=== PATIENT | male | born 1950 | race Caucasian/White ===

== ENCOUNTER 2017-12-20 12:00 | Day surgery (SDC) | payer MEDICARE ==
[~2017-12-20] VITALS: Ht 172.7 cm; Wt 54.4 kg
[~2017-12-20 12:00] MED LIST: ADLT ASA LOW81 MG PO; ALEVE220 M2 PO; ALLEGRA-D 1212 HOUR PO; AMOXICILLIN250 M1 PO; AMOXICILLIN500 MG OR; ANUSOL-HC25 MG RE; ASPIRIN325 MG PO; ATORVASTATIN CA20 MG PO; CENTRU3 PO; COMBIVENT IN; DIGITEK0.25 M1 PO; FOSINOPRIL20 MG PO; KEFLEX500 MG OR; LORTAB 10 PO; METOPROL TAR25 MG PO; METOPROL TAR50 MG PO; METOPROLOL TART50 MG PO; NEURONTIN300 MG PO; PLAVIX75 MG PO; SG ASA LOW81 M1 PO; ULTRAM50 MG OR; VITAMIN B-1250 MG PO
[2017-12-20 15:36] VITALS: BP 142/66
== END 2017-12-20 15:55 | disposition home or self-care (01) ==
LOC: ORM 12:00 → ENDO 12:00 → ORM 13:50 → ENDO 13:50
PROVIDERS: ATTEND Internal Medicine Gastroenterology
PROC: 0DB48ZX Excision of Esophagogastric Junction, Via Natural or Artificial Opening Endoscopic, Diagnostic (ICD-10-PCS; principal; 2017-12-20)
PROC: 0DJD8ZZ Inspection of Lower Intestinal Tract, Via Natural or Artificial Opening Endoscopic (ICD-10-PCS; 2017-12-20)
DX: K21.0 Gastro-esophageal reflux disease with esophagitis (principal); K29.70 Gastritis, unspecified, without bleeding; K44.9 Diaphragmatic hernia without obstruction or gangrene; Q40.2 Other specified congenital malformations of stomach; Q39.8 Other congenital malformations of esophagus; K22.70 Barrett's esophagus without dysplasia; Z12.11 Encounter for screening for malignant neoplasm of colon; K64.4 Residual hemorrhoidal skin tags; K57.30 Diverticulosis of large intestine without perforation or abscess without bleeding; K64.8 Other hemorrhoids; F17.200 Nicotine dependence, unspecified, uncomplicated; I25.10 Atherosclerotic heart disease of native coronary artery without angina pectoris; I10 Essential (primary) hypertension; K29.80 Duodenitis without bleeding; Z86.010 Personal history of colon polyps; Z95.1 Presence of aortocoronary bypass graft; Z95.5 Presence of coronary angioplasty implant and graft; Z86.73 Personal history of transient ischemic attack (TIA), and cerebral infarction without residual deficits
CPT/HCPCS: 43239; G0105

== ENCOUNTER → 2018-07-23 | Outpatient (REF) | payer MEDICARE ==
[2018-07-23 08:54] LABS: HEMOGLOBIN 15.7 g/dl (14.0-18.0); IMMATURE GRANULOCYTES 0.2 % (0.0-5.0); MEAN CELL VOLUME 95.6 fL CALC (80.0-100.0); MEAN CORPUSCULAR HGB 31.3 pG CALC (26.0-32.0); MEAN CORPUSCULAR HGB CONC 32.7 g/L CALC (32.0-36.0); NEUT# 6.39 thou/uL (1.82-7.42); RED BLOOD COUNT 5.02 mill/uL (4.70-6.10); RED CELL DISTRI WIDTH 13.8 % (11.5-15.5)
[2018-07-23 09:15] LABS: ALKALINE PHOSPHATASE 129 u/l (38-126); ANION GAP 15 (6-22 (CALC)); BILIRUBIN, TOTAL 0.7 mg/dL (0.0-1.4); BUN 9 mg/dL (8-23); BUN/CREATININE RATIO 11 (12-20 (CALC)); CALCULATED LDLCHOLESTEROL 71 mg/dL (62-129 (CALC)); CARBON DIOXIDE 28 mmol/l (22-30); CHLORIDE 105 mmol/l (95-108); CHOLESTEROL HDL RATIO 3.9 (<4.4 (CALC)); CREATININE 0.8 mg/dL (0.7-1.3); GFR > 60 ML/MIN (>=60 (CALC)); GFR FOR AFR.AMER. > 60 ML/MIN (>=60 (CALC)); HDL CHOLESTEROL 35 mg/dL (>=40); SGOT/AST 19 u/l (19-48); SODIUM 143 mmol/l (137-146); TOTAL CHOLESTEROL 135 mg/dl (0-199); TOTAL PROTEIN 7.7 g/dL (6.3-8.2); TRIGLYCERIDES REFLEX TO dLDL 148 mg/dl (30-149); VLDL CHOLESTROL 30 mg/dl (4-45 (CALC))
== END | disposition home or self-care (01) ==
LOC: LAB 08:34
PROVIDERS: ATTEND Internal Medicine Geriatric Medicine
DX: E78.2 Mixed hyperlipidemia (principal); I10 Essential (primary) hypertension

== ENCOUNTER 2020-04-22 15:10 | Emergency (ER) | payer MEDICARE ==
[~2020-04-22] VITALS: Ht 170.2 cm; Wt 57.3 kg
[2020-04-22 16:13] LABS: GFR > 60 ML/MIN (>=60 (CALC)); GFR FOR AFR.AMER. > 60 ML/MIN (>=60 (CALC))
[2020-04-22 16:16] LABS: HEMATOCRIT 47.7 % (39.0-50.0); HEMOGLOBIN 16.4 g/dl (14.0-18.0); IMMATURE GRANULOCYTES 0.4 % (0.0-5.0); MEAN CELL VOLUME 89.2 fL CALC (80.0-100.0); MEAN CORPUSCULAR HGB 30.7 pG CALC (26.0-32.0); MEAN CORPUSCULAR HGB CONC 34.4 g/dL CAL (32.0-36.0); NEUT# 10.59 thou/uL (1.82-7.42); RED BLOOD COUNT 5.35 mill/uL (4.70-6.10); RED CELL DISTRI WIDTH 12.8 % (11.5-15.5)
[2020-04-22] MEDS ORDERED: PLAVIX75 MG PO (16:19)
[2020-04-22] MEDS ORDERED: LIPITOR40 M1 PO (16:19)
[2020-04-22] MEDS ORDERED: OMEPRAZOLE20 MG PO (16:20)
[2020-04-22] MEDS ORDERED: CYMBALTA30 MG PO (16:21)
[2020-04-22 16:39] LABS: ALBUMIN 4.5 g/dL (3.2-5.0); ALKALINE PHOSPHATASE 158 u/l (38-126); BUN 13 mg/dL (8-23); BUN/CREATININE RATIO 22 (12-20 (CALC)); CHLORIDE 96 mmol/l (95-108); CREATININE 0.6 mg/dL (0.7-1.3); GFR > 60 ML/MIN (>=60 (CALC)); GFR FOR AFR.AMER. > 60 ML/MIN (>=60 (CALC)); LIPASE 64 u/l (23-300); POTASSIUM 4.3 mmol/l (3.5-5.1); SGOT/AST 34 u/l (19-48); TOTAL PROTEIN 8.7 g/dL (6.3-8.2)
[2020-04-22 16:45] LABS: ANION GAP 17 (6-22 (CALC)); CARBON DIOXIDE 23 mmol/l (22-30); SODIUM 132 mmol/l (137-146)
[2020-04-22 18:52] LABS: URINE BLOOD DIPSTICK NEGATIVE (NEGATIVE); URINE COLOR YELLOW; URINE GLUCOSE - DIPSTICK NEGATIVE (NEGATIVE); URINE KETONE >=80 mg/dL (NEGATIVE); URINE LEUK ESTERASE NEGATIVE (NEGATIVE); URINE NITRITE - DIPSTICK NEGATIVE (Negative); URINE PH 5.5 (4.5-8.0); URINE PROTEIN - DIPSTICK TRACE mg/dL (NEG-TRACE); URINE SPECIFIC GRAVITY 1.015
[2020-04-22 18:53] LABS: URINE BILIRUBIN - DIPSTICK SMALL (NEGATIVE)
[2020-04-22] MEDS ORDERED: HYDROCO/APAP1 TA9 PO (19:12)
[2020-04-22 19:15] VITALS: BP 156/72
== END 2020-04-22 19:26 | disposition home or self-care (01) ==
LOC: ED 15:10
PROVIDERS: Family Medicine
DX: R55 Syncope and collapse (principal); R11.2 Nausea with vomiting, unspecified; S32.010A Wedge compression fracture of first lumbar vertebra, initial encounter for closed fracture; I25.10 Atherosclerotic heart disease of native coronary artery without angina pectoris; F17.200 Nicotine dependence, unspecified, uncomplicated; R64 Cachexia; W19.XXXA Unspecified fall, initial encounter; Z86.73 Personal history of transient ischemic attack (TIA), and cerebral infarction without residual deficits
CPT/HCPCS: Q9967

== ENCOUNTER 2020-11-28 17:21 | Emergency (ER) | payer MEDICARE ==
[~2020-11-28] VITALS: Ht 170.2 cm; Wt 54.5 kg
[~2020-11-28 17:21] MED LIST changes: +CYMBALTA30 MG PO; +HYDROCO/APAP1 TA9 PO; +LIPITOR40 M1 PO; +OMEPRAZOLE20 MG PO
[2020-11-28 18:00] LABS: HEMATOCRIT 43.3 % (39.0-50.0); HEMOGLOBIN 14.8 g/dl (14.0-18.0); IMMATURE GRANULOCYTES 0.1 % (0.0-5.0); MEAN CELL VOLUME 90.6 fL CALC (80.0-100.0); MEAN CORPUSCULAR HGB CONC 34.2 g/dL CAL (32.0-36.0); NEUT# 12.82 thou/uL (1.82-7.42); RED BLOOD COUNT 4.78 mill/uL (4.70-6.10); RED CELL DISTRI WIDTH 13.3 % (11.5-15.5); URINE BILIRUBIN - DIPSTICK NEGATIVE (NEGATIVE); URINE BLOOD DIPSTICK NEGATIVE (NEGATIVE); URINE COLOR YELLOW; URINE GLUCOSE - DIPSTICK NEGATIVE (NEGATIVE); URINE KETONE NEGATIVE (NEGATIVE); URINE LEUK ESTERASE NEGATIVE (NEGATIVE); URINE PROTEIN - DIPSTICK NEGATIVE (NEG-TRACE)
[2020-11-28 18:01] LABS: URINE NITRITE - DIPSTICK NEGATIVE (Negative)
[2020-11-28 18:12] LABS: ALBUMIN 3.8 g/dL (3.2-5.0); ALKALINE PHOSPHATASE 109 u/l (38-126); BILIRUBIN, TOTAL 0.7 mg/dL (0.0-1.4); BUN 4 mg/dL (8-23); BUN/CREATININE RATIO 8 (12-20 (CALC)); CARBON DIOXIDE 24 mmol/l (22-30); CHLORIDE 94 mmol/l (95-108); CPK 68 u/l (52-200); CREATININE 0.5 mg/dL (0.7-1.3); ETHYL ALCOHOL 134 mg/dl (0-30); GFR > 60 ML/MIN (>=60 (CALC)); GFR FOR AFR.AMER. > 60 ML/MIN (>=60 (CALC)); LIPASE 83 u/l (23-300); SGOT/AST 30 u/l (19-48); SODIUM 129 mmol/l (137-146); TOTAL PROTEIN 7.4 g/dL (6.3-8.2)
[2020-11-28 18:16] LABS: ANION GAP 14 (6-22 (CALC)); POTASSIUM 3.4 mmol/l (3.5-5.1)
[2020-11-28 18:18] LABS: INTERNATIONAL NORMALIZED RATIO 1.1 RATIO (0.7-1.3); PROTHROMBIN TIME 11.1 SECONDS (9.0-12.5)
[2020-11-28] MEDS ORDERED: FLONASE AL50 MCG/ACT (19:56)
[2020-11-28] MEDS ORDERED: KEFLEX500 MG PO (19:57)
[2020-11-28 20:03] VITALS: BP 151/67
== END 2020-11-28 20:14 | disposition home or self-care (01) ==
LOC: ED 17:21
DX: S09.90XA Unspecified injury of head, initial encounter (principal); S51.012A Laceration without foreign body of left elbow, initial encounter; S51.011A Laceration without foreign body of right elbow, initial encounter; S61.411A Laceration without foreign body of right hand, initial encounter; F10.129 Alcohol abuse with intoxication, unspecified; I10 Essential (primary) hypertension; F03.90 Unspecified dementia, unspecified severity, without behavioral disturbance, psychotic disturbance, mood disturbance, and anxiety; F17.200 Nicotine dependence, unspecified, uncomplicated; W19.XXXA Unspecified fall, initial encounter; Y92.009 Unspecified place in unspecified non-institutional (private) residence as the place of occurrence of the external cause; Z86.73 Personal history of transient ischemic attack (TIA), and cerebral infarction without residual deficits; Z95.1 Presence of aortocoronary bypass graft

== ENCOUNTER 2022-05-13 17:40 | Emergency (ER) | payer MEDICARE ==
[~2022-05-13] VITALS: Ht 170.2 cm; Wt 56.6 kg
[~2022-05-13 17:40] MED LIST changes: +FLONASE AL50 MCG/ACT; +KEFLEX500 MG PO
[2022-05-13 18:25] LABS: HEMATOCRIT 37.5 % (39.0-50.0); HEMOGLOBIN 13.8 g/dl (14.0-18.0); IMMATURE GRANULOCYTES 0.5 % (0.0-5.0); MEAN CELL VOLUME 88.4 fL CALC (80.0-100.0); MEAN CORPUSCULAR HGB 32.5 pG CALC (26.0-32.0); MEAN CORPUSCULAR HGB CONC 36.8 g/dL CAL (32.0-36.0); NEUT# 8.38 thou/uL (1.82-7.42); RED BLOOD COUNT 4.24 mill/uL (4.70-6.10); RED CELL DISTRI WIDTH 12.6 % (11.5-15.5)
[2022-05-13 18:37] LABS: ALBUMIN 3.3 g/dL (3.2-5.0); ALKALINE PHOSPHATASE 120 u/l (38-126); BILIRUBIN, TOTAL 0.7 mg/dL (0.0-1.4); CARBON DIOXIDE 25 mmol/l (22-30); CHLORIDE 88 mmol/l (95-108); CREATININE 0.6 mg/dL (0.7-1.3); GFR FOR AFR.AMER. > 60 ML/MIN (>=60 (CALC)); GFR OTHER RACES > 60 ML/MIN (>=60 (CALC)); POTASSIUM 3.9 mmol/l (3.5-5.1); TOTAL PROTEIN 6.1 g/dL (6.3-8.2)
[2022-05-13 18:40] LABS: ANION GAP 9 (6-22 (CALC)); BUN 32 mg/dL (8-23); BUN/CREATININE RATIO 53 (12-20 (CALC)); SGOT/AST 313 u/l (19-48)
[2022-05-13 18:41] LABS: SODIUM 118 mmol/l (137-146)
[2022-05-13 18:43] LABS: MAGNESIUM 2.1 mg/dL (1.6-2.3)
[2022-05-13 21:16] VITALS: BP 104/47
[2022-05-13 21:30] VITALS: BP 107/55
[2022-05-13] MEDS ORDERED: B COMPLETE PO (21:38)
[2022-05-13 21:45] VITALS: BP 107/44
== END 2022-05-13 22:00 | disposition short-term general hospital (02) ==
LOC: ED 17:40
PROVIDERS: Family Medicine
DX: R79.89 Other specified abnormal findings of blood chemistry (principal); M62.82 Rhabdomyolysis; E87.1 Hypo-osmolality and hyponatremia; S00.31XA Abrasion of nose, initial encounter; S00.81XA Abrasion of other part of head, initial encounter; I10 Essential (primary) hypertension; F17.200 Nicotine dependence, unspecified, uncomplicated; W19.XXXA Unspecified fall, initial encounter; Z95.1 Presence of aortocoronary bypass graft; Z86.73 Personal history of transient ischemic attack (TIA), and cerebral infarction without residual deficits; Z91.81 History of falling